=== PATIENT | female | born 2000 | race Two or more races ===

== ENCOUNTER 2023-11-17 10:12 | Inpatient (IN) | payer OTHER, MEDICARE, MEDICAID ==
[~2023-11-17] VITALS: Ht 162.6 cm; Wt 69.9 kg
[2023-11-17 10:18] VITALS: O2SAT 100
[2023-11-17 11:08] LABS: BASOPHILS % 0.6 % (0.0-2.0); EOSINOPHILS % 1.8 % (0.0-5.0); HEMATOCRIT. 45.3 % (36.0-48.0); HEMOGLOBIN. 15.5 g/dL (12.0-16.0); LYMPHOCYTES % 36.7 % (20.0-50.0); MEAN CORPUSCULAR HEMOGLOBIN 30.5 pg (28.0-32.0); MEAN CORPUSCULAR HGB CONC 34.2 g/dL (31.0-37.0); MEAN CORPUSCULAR VOLUME 89.1 fL (81.0-99.0); MONOCYTES % 5.4 % (2.0-8.0); NEUTROPHILS % 55.5 % (40.0-76.0); PLATELET 312 x1000/uL (130-400); RED BLOOD CELL COUNT 5.09 mill/uL (4.2-5.4); RED CELL DISTRIBUTION WIDTH 14.3 % (11.6-14.6); WHITE BLOOD COUNT 7.6 x1000/uL (4.5-11.0)
[2023-11-17] MEDS: KETOROLAC 30MG/ML VIAL IV STA (11:16)
[2023-11-17] MEDS: METOCLOPRAMIDE HCL 10MG/2ML VIAL IV ONE (11:17)
[2023-11-17] MEDS: SODIUM CHLORIDE 0.9% 1000ML BAG (SEPSIS BOLUS) IV ONE (11:17)
[2023-11-17 11:18] LABS: PROTHROMBIN TIME 10.9 sec (9.6-11.0)
[2023-11-17 11:24] LABS: ALANINE AMINOTRANSFERASE 21 IU/L (10-49); ASPARTATE AMINOTRANSFERASE 26 IU/L (<34); BILIRUBIN TOTAL 0.7 mg/dL (0.1-1.0); CARBON DIOXIDE 27 mEq/L (21-32); CHLORIDE 104 mEq/L (98-107); CREATININE 0.5 mg/dL (0.6-1.0); GLUCOSE 112 mg/dL (70-105); POTASSIUM 3.4 mEq/L (3.5-5.1); PROTEIN TOTAL 7.7 g/dL (6.0-8.3); SODIUM 141 mEq/L (136-145); UREA NITROGEN BLOOD 11 mg/dL (9-23)
[2023-11-17 12:31] LABS: CLARITY URINE TURBID (CLEAR); COLOR URINE YELLOW (YELLOW); GLUCOSE URINE NEGATIVE (NEGATIVE); KETONES URINE NEGATIVE (NEGATIVE); LEUKOCYTE ESTERASE URINE 2+ (NEGATIVE); NITRITE URINE POSITIVE (NEGATIVE); OCCULT BLOOD URINE NEGATIVE (NEGATIVE); PH URINE >=9.0 (4.5-8.0); PROTEIN URINE NEGATIVE (NEGATIVE); SPECIFIC GRAVITY URINE 1.007 (1.005-1.030); UROBILINOGEN URINE 0.2 E.U./dL (0.2-1.0)
[2023-11-17 12:55] LABS: AMORPHOUS SEDIMENT URINE 2+ /lpf; TRIPLE PHOSPHATE CRYSTAL URINE 4+ /lpf
[2023-11-17 12:57] LABS: BACTERIA URINE 4+
[2023-11-17 13:00] LABS: RBC URINE NONE SEEN /hpf (0-2); WBC URINE NONE SEEN /hpf (0-2)
[2023-11-17 13:01] LABS: SQUAMOUS EPITHELIAL CELL URINE NONE SEEN /lpf (RARE/1+)
[2023-11-17] MEDS: CEFTRIAXONE 1GM PREMIX 50 ML IV ONE (13:08)
[2023-11-17] MEDS ORDERED: KETOROLAC 15MG/ML VIAL IV PRN (14:15)
[2023-11-17] MEDS ORDERED: ACETAMINOPHEN 325MG TABLET PO PRN ×2 (14:15)
[2023-11-17] MEDS ORDERED: NITROGLYCERIN 0.4MG TABLET SL SL PRN (14:15)
[2023-11-17] MEDS ORDERED: GUAIFENESIN 200MG/10ML SUGAR FREE UDC PO PRN (14:15)
[2023-11-17] MEDS ORDERED: ONDANSETRON HCL 4MG/2ML INJ IV PRN (14:15)
[2023-11-17] MEDS ORDERED: MEROPENEM 1,000 MG in SODIUM CHLORIDE 0.9% 100 ML IV SCH (14:15)
[2023-11-17] MEDS ORDERED: MAGNESIUM/ALUMINUM HYDROXIDE/SIMETHICONE 30ML UDC PO PRN (14:15)
[2023-11-17] MEDS ORDERED: CLONIDINE 0.1MG TABLET PO PRN (14:15)
[2023-11-17] MEDS ORDERED: IPRATROPIUM/ALBUTEROL 0.5-3(2.5)MG/3ML NEB NEB PRN (14:15)
[2023-11-17] MEDS ORDERED: ZOLPIDEM TARTRATE 5MG TABLET PO PRN (14:15)
[2023-11-17] MEDS: LACTATED RINGERS 1,000 ML IV SCH (15:12)
[2023-11-17] MEDS: MEROPENEM 1G/100ML IV SCH ×2 (16:00→22:20)
[2023-11-17] MEDS ORDERED: VANCOMYCIN 1250MG in DEXTROSE 5% WATER 250ML IV SCH (17:00)
[2023-11-17] MEDS: POTASSIUM CHLORIDE 20MEQ TABLET SR PO NR (18:07)
[2023-11-17 18:16] VITALS: BP 98/44; PULSE 76; RESP 18; TEMP 98.2
[2023-11-17 18:20] VITALS: BP 97/45; PULSE 77; RESP 17; TEMP 97.7
[2023-11-17] MEDS: VANCOMYCIN 1250MG in DEXTROSE 5% WATER 250ML IV SCH (18:35)
[2023-11-17] MEDS ORDERED: LORA2ORA5 PO (18:46)
[2023-11-17] MEDS ORDERED: BACL-141 PO (18:46)
[2023-11-17] MEDS ORDERED: GABA-532 PO (18:46)
[2023-11-17] MEDS ORDERED: NORE0.3513 PO ×2 (18:46)
[2023-11-17] MEDS ORDERED: LORA10TA7 PO (18:46)
[2023-11-17] MEDS ORDERED: OXYB5TAB17 PO (18:46)
[2023-11-17] MEDS ORDERED: MIDO10TA PO (18:46)
[2023-11-17] MEDS ORDERED: MIDO10TA MT (18:46)
[2023-11-17] MEDS ORDERED: BISA-186 RC (18:46)
[2023-11-17 20:00] VITALS: BP 89/61; PULSE 79; RESP 18; TEMP 98.4
[2023-11-17 20:12] LABS: IRON 79 ug/dL (50-170); T4 FREE 1.39 ng/dL (0.89-1.76); THYROID STIMULATING HORMONE 0.53 uIU/mL (0.55-4.78); TOTAL IRON BINDING CAPACITY 225 ug/dl (250-425)
[2023-11-17 20:30] LABS: FOLIC ACID (FOLATE) SERUM > 20.00 ng/mL (>5.38); VITAMIN B12 SERUM 510 pg/mL (211-911)
[2023-11-17] MEDS: GABAPENTIN 300MG CAPSULE PO SCH (21:24)
[2023-11-17] MEDS: ASCORBIC ACID 500 MG TABLET PO SCH (21:24)
[2023-11-17] MEDS: LORAZEPAM 1MG TABLET PO SCH (21:24)
[2023-11-17] MEDS: BACLOFEN 10MG TABLET PO SCH (21:24)
[2023-11-17] MEDS: FAMOTIDINE 20MG TABLET PO SCH (21:24)
[2023-11-17] MEDS: ENOXAPARIN 40MG/0.4ML SYR SUBCUT SCH (21:25)
[2023-11-17] MEDS: BISACODYL 10MG SUPP RC SCH (22:56)
[2023-11-18] VITALS: BP 85/45; PULSE 99; RESP 18; TEMP 100
[2023-11-18 04:00] VITALS: BP 91/44; PULSE 90; RESP 19; TEMP 98.8
[2023-11-18 06:55] LABS: BASOPHILS % 0.6 % (0.0-2.0); EOSINOPHILS % 1.1 % (0.0-5.0); HEMATOCRIT. 39.6 % (36.0-48.0); HEMOGLOBIN. 13.3 g/dL (12.0-16.0); LYMPHOCYTES % 22.1 % (20.0-50.0); MEAN CORPUSCULAR HEMOGLOBIN 29.6 pg (28.0-32.0); MEAN CORPUSCULAR HGB CONC 33.7 g/dL (31.0-37.0); MEAN CORPUSCULAR VOLUME 87.8 fL (81.0-99.0); MEAN PLATELET VOLUME 10.7 fl (7.4-10.4); MONOCYTES % 5.4 % (2.0-8.0); NEUTROPHILS % 70.8 % (40.0-76.0); PLATELET 206 x1000/uL (130-400); RED BLOOD CELL COUNT 4.51 mill/uL (4.2-5.4); RED CELL DISTRIBUTION WIDTH 14.1 % (11.6-14.6); WHITE BLOOD COUNT 8.5 x1000/uL (4.5-11.0)
[2023-11-18 07:49] LABS: ALANINE AMINOTRANSFERASE 17 IU/L (10-49); ASPARTATE AMINOTRANSFERASE 36 IU/L (<34); CALCIUM 9.1 mg/dL (8.7-10.4); CARBON DIOXIDE 26 mEq/L (21-32); CHLORIDE 106 mEq/L (98-107); CREATININE 0.4 mg/dL (0.6-1.0); GLUCOSE 81 mg/dL (70-105); PHOSPHORUS 3.2 mg/dL (2.5-4.9); POTASSIUM 4.2 mEq/L (3.5-5.1); PROTEIN TOTAL 6.6 g/dL (6.0-8.3); SODIUM 141 mEq/L (136-145); UREA NITROGEN BLOOD 10 mg/dL (9-23)
[2023-11-18] MEDS: ZINC SULFATE 220 MG ( 50 ) CAPSULE PO SCH (08:47)
[2023-11-18 11:11] LABS: *AMPHETAMINES SCREEN URINE NEGATIVE (NEGATIVE); *BARBITURATES SCREEN URINE NEGATIVE (NEGATIVE); *BENZODIAZEPINES SCREEN URINE NEGATIVE (NEGATIVE); *COCAINE SCREEN URINE NEGATIVE (NEGATIVE); CANNABINOID URINE SCREEN PRESUMPTIVE POSITIVE (NEGATIVE); ECSTASY MDMA SCREEN URINE NEGATIVE (NEGATIVE); METHADONE URINE SCREEN Neg (NEGATIVE); OPIATES URINE SCREEN NEGATIVE (NEGATIVE); PHENCYCLIDINE URINE SCREEN NEGATIVE (NEGATIVE)
[2023-11-18 12:00] VITALS: BP 115/78; PULSE 91; RESP 18; TEMP 98
[2023-11-18] MEDS: MIDODRINE HCL 5MG TABLET PO SCH (13:16)
[2023-11-18 16:00] VITALS: BP 117/62; PULSE 87; RESP 18; TEMP 97.7
[2023-11-18] MEDS: OXYBUTYNIN CHLORIDE 5MG TABLET PO NR (17:27)
[2023-11-18] MEDS: DOCUSATE SODIUM 100MG CAPSULE PO PRN (21:17)
[2023-11-18 23:37] VITALS: BP 90/57; PULSE 96; RESP 16; TEMP 96.6
[2023-11-19 04:00] VITALS: BP 104/56; PULSE 88; RESP 18; TEMP 99.2
[2023-11-19 08:25] VITALS: BP 98/52; PULSE 78; RESP 20; TEMP 97.6
[2023-11-19] MEDS: OXYBUTYNIN CHLORIDE 5MG TABLET PO SCH (09:01)
== END 2023-11-19 11:33 | disposition left against medical advice (07) | DRG 698 ==
LOC: ER 10:12 → EDBEDREQSVC 12:37 → EDBEDREQ 12:37 → 8WST 13:28 → EDBEDREQSVC 13:31 → EDBEDREQTM 13:31 → EDBEDREQ 13:31
PROVIDERS: ADMIT Internal Medicine; ATTEND Internal Medicine
DX: T83.518A Infection and inflammatory reaction due to other urinary catheter, initial encounter (principal); A41.9 Sepsis, unspecified organism; N39.0 Urinary tract infection, site not specified; G82.20 Paraplegia, unspecified; E87.6 Hypokalemia; N31.9 Neuromuscular dysfunction of bladder, unspecified; Y83.8 Other surgical procedures as the cause of abnormal reaction of the patient, or of later complication, without mention of misadventure at the time of the procedure; Z53.29 Procedure and treatment not carried out because of patient's decision for other reasons; Y92.89 Other specified places as the place of occurrence of the external cause
CPT/HCPCS: 36415; 71045; 80053; 80202; 80305; 81003; 82607; 82746; 83036; 83540; 83550; 83605; 83735; 84100; 84145; 84439; 84443; 85025; 87077; 87186; 93005; 93970; 99291; J0696; J1650; J1885; J2185; J2765; J3370; J7030; J7060